=== PATIENT | female | born 1975 | race Caucasian/White ===

== ENCOUNTER 2025-02-06 16:46 | Emergency (ER) | payer BC ==
[~2025-02-06] VITALS: Ht 154.9 cm; Wt 75.0 kg
[2025-02-06 16:49] VITALS: O2SAT 100
[2025-02-06] MEDS ORDERED: DIPHENHYDRAMINE 50MG CAPSULE PO ONE (18:15)
[2025-02-06 19:04] LABS: BASOPHILS % 0.4 % (0.0-2.0); EOSINOPHILS % 1.9 % (0.0-5.0); HEMATOCRIT. 40.2 % (36.0-48.0); HEMOGLOBIN. 13.8 g/dL (12.0-16.0); LYMPHOCYTES % 12.6 % (20.0-50.0); MEAN PLATELET VOLUME 8.8 fl (7.4-10.4); MONOCYTES % 4.2 % (2.0-8.0); NEUTROPHILS % 80.9 % (40.0-76.0); PLATELET 423 x1000/uL (130-400); RED BLOOD CELL COUNT 4.39 mill/uL (4.2-5.4); RED CELL DISTRIBUTION WIDTH 14.1 % (11.6-14.6)
[2025-02-06] MEDS: DIPHENHYDRAMINE 25MG CAPSULE PO NR (19:11)
[2025-02-06] MEDS: DEXAMETHASONE 10 MG/ML VIAL IM ONE (19:11)
[2025-02-06 19:32] LABS: CREATININE 0.9 mg/dL (0.6-1.0); UREA NITROGEN BLOOD 14 mg/dL (9-23)
[2025-02-06] MEDS ORDERED: TC1C15 TP (21:20)
[2025-02-06] MEDS ORDERED: DIPH25TA26 MT (21:20)
[2025-02-06 21:22] LABS: CLARITY URINE CLEAR (CLEAR); COLOR URINE YELLOW (YELLOW); GLUCOSE URINE NEGATIVE (NEGATIVE); KETONES URINE NEGATIVE (NEGATIVE); LEUKOCYTE ESTERASE URINE NEGATIVE (NEGATIVE); NITRITE URINE NEGATIVE (NEGATIVE); OCCULT BLOOD URINE TRACE (NEGATIVE); PH URINE 5.5 (4.5-8.0); PROTEIN URINE NEGATIVE (NEGATIVE); SPECIFIC GRAVITY URINE 1.006 (1.005-1.030); UROBILINOGEN URINE 0.2 E.U./dL (0.2-1.0)
[2025-02-06 21:35] VITALS: BP 138/84; PULSE 98; RESP 18; TEMP 36.7; O2SAT 100
[2025-02-06 21:57] LABS: BACTERIA URINE NONE SEEN; RBC URINE NONE SEEN /hpf (0-2); SQUAMOUS EPITHELIAL CELL URINE NONE SEEN /lpf (RARE/1+); WBC URINE NONE SEEN /hpf (0-2); YEAST URINE NONE SEEN
== END 2025-02-06 21:36 | disposition home or self-care (01) ==
LOC: ER 16:46
DX: R21 Rash and other nonspecific skin eruption (principal)
CPT/HCPCS: 80048; 81003; 85025; 36415; 96372; 99283; Q0163; J1100; Z7610